=== PATIENT | female | born 1950 | race Caucasian/White ===

== ENCOUNTER → 2018-11-11 | Outpatient (CLI) | payer MEDICARE, OTHER | LOC: M.MRI 11-08 16:30 | DX: M47.816 Spondylosis without myelopathy or radiculopathy, lumbar region (principal); G89.29 Other chronic pain; M96.1 Postlaminectomy syndrome, not elsewhere classified; M48.061 Spinal stenosis, lumbar region without neurogenic claudication; Z88.8 Allergy status to other drugs, medicaments and biological substances ==

== ENCOUNTER → 2018-11-12 | Outpatient (CLI) | payer MEDICARE, OTHER | LOC: M.ULTRA 10-22 15:27 | DX: K76.0 Fatty (change of) liver, not elsewhere classified (principal); I10 Essential (primary) hypertension; F17.210 Nicotine dependence, cigarettes, uncomplicated; E66.01 Morbid (severe) obesity due to excess calories; Z88.8 Allergy status to other drugs, medicaments and biological substances; Z68.41 Body mass index [BMI] 40.0-44.9, adult; Z90.710 Acquired absence of both cervix and uterus; Z82.49 Family history of ischemic heart disease and other diseases of the circulatory system; Z83.3 Family history of diabetes mellitus ==

== ENCOUNTER → 2018-12-08 | Outpatient (CLI) | payer MEDICARE, OTHER ==
[~2018-12-08] MED LIST: CETIRIZINE HCL10 MG PO; FLEXERIL PO; LOPRESSOR50 PO; NORVASC5 MG PO; PYRIDOXINE HCL50 MG PO; SENNA8.6 MG PO; TRAZODONE 150150 M1 PO; VITAMIN D2000 UNIT PO
== END ==
LOC: M.PC 05:11
DX: M51.36 Other intervertebral disc degeneration, lumbar region (principal); M47.816 Spondylosis without myelopathy or radiculopathy, lumbar region; I10 Essential (primary) hypertension; E66.9 Obesity, unspecified; Z68.41 Body mass index [BMI] 40.0-44.9, adult

== ENCOUNTER → 2019-01-12 | Outpatient (CLI) | payer MEDICARE, OTHER ==
[~2019-01-12] MED LIST changes: +TRAMADOL 50 MG50 MG PO
== END | disposition home or self-care (01) ==
LOC: M.PC 03:37
DX: M47.816 Spondylosis without myelopathy or radiculopathy, lumbar region (principal); M51.36 Other intervertebral disc degeneration, lumbar region; M53.3 Sacrococcygeal disorders, not elsewhere classified; I10 Essential (primary) hypertension; E66.09 Other obesity due to excess calories; Z68.41 Body mass index [BMI] 40.0-44.9, adult; Z98.890 Other specified postprocedural states; Z88.8 Allergy status to other drugs, medicaments and biological substances; Z79.899 Other long term (current) drug therapy

== ENCOUNTER → 2019-01-24 | Outpatient (CLI) | payer MEDICARE, OTHER | END | disposition home or self-care (01) | LOC: M.PC 05:05 | DX: M51.36 Other intervertebral disc degeneration, lumbar region (principal); M47.816 Spondylosis without myelopathy or radiculopathy, lumbar region; M96.1 Postlaminectomy syndrome, not elsewhere classified; M53.3 Sacrococcygeal disorders, not elsewhere classified; I10 Essential (primary) hypertension; E66.09 Other obesity due to excess calories; Z68.41 Body mass index [BMI] 40.0-44.9, adult; Z98.890 Other specified postprocedural states; Z83.3 Family history of diabetes mellitus; Z79.899 Other long term (current) drug therapy; Z82.49 Family history of ischemic heart disease and other diseases of the circulatory system; Z88.8 Allergy status to other drugs, medicaments and biological substances ==

== ENCOUNTER → 2019-03-28 | Outpatient (CLI) | payer MEDICARE, OTHER | END | disposition home or self-care (01) | LOC: M.PC 04:55 | DX: M53.3 Sacrococcygeal disorders, not elsewhere classified (principal); M96.1 Postlaminectomy syndrome, not elsewhere classified; M51.36 Other intervertebral disc degeneration, lumbar region; M47.896 Other spondylosis, lumbar region; I10 Essential (primary) hypertension; E66.09 Other obesity due to excess calories; Z88.8 Allergy status to other drugs, medicaments and biological substances; Z98.890 Other specified postprocedural states; Z68.41 Body mass index [BMI] 40.0-44.9, adult; Z82.49 Family history of ischemic heart disease and other diseases of the circulatory system; Z83.3 Family history of diabetes mellitus; Z79.899 Other long term (current) drug therapy ==

== ENCOUNTER → 2019-04-01 | Outpatient (CLI) | payer MEDICARE, OTHER | LOC: M.ULTRA 10:30 | DX: M79.89 Other specified soft tissue disorders (principal) ==

== ENCOUNTER → 2019-04-27 | Outpatient (CLI) | payer MEDICARE, OTHER | LOC: M.LAB 04-13 13:30 → M.MRI 04-13 14:30 → M.LAB 04-18 13:30 | PROVIDERS: Physical Medicine & Rehabilitation | DX: M47.814 Spondylosis without myelopathy or radiculopathy, thoracic region (principal) ==

== ENCOUNTER → 2019-05-30 | Outpatient (CLI) | payer MEDICARE, OTHER | LOC: M.PC 04:43 | DX: M47.816 Spondylosis without myelopathy or radiculopathy, lumbar region (principal); M51.36 Other intervertebral disc degeneration, lumbar region; M12.88 Other specific arthropathies, not elsewhere classified, other specified site; Z79.899 Other long term (current) drug therapy ==

== ENCOUNTER → 2019-06-15 | Outpatient (CLI) | payer MEDICARE, OTHER | LOC: M.PC 05:17 | DX: M51.36 Other intervertebral disc degeneration, lumbar region (principal); M47.816 Spondylosis without myelopathy or radiculopathy, lumbar region; M12.88 Other specific arthropathies, not elsewhere classified, other specified site ==

== ENCOUNTER 2020-03-05 16:51 | Inpatient (IN) | payer MEDICARE, OTHER ==
[~2020-03-05] VITALS: Ht 162.6 cm; Wt 127.0 kg
[2020-03-05 17:03] VITALS: BP 205/114
[2020-03-05 17:35] LABS: ABSOLUTE BASOPHILS 0.1 thou/uL (0.0-0.2); ABSOLUTE EOSINOPHILS 0.2 thou/uL (0.0-0.7); ABSOLUTE LYMPHOCYTES 2.3 thou/uL (0.8-5.3); ABSOLUTE MONOCYTES 0.6 thou/uL (0.0-1.2); ABSOLUTE NEUTROPHILS 5.8 thou/uL (1.6-8.1); BASOPHILS 1.2 %; EOSINOPHILS 2.5 %; HEMATOCRIT 36.7 % (37.0-47.0); HEMOGLOBIN 12.4 gm/dL (12.0-15.0); LYMPHOCYTES 25.5 %; MCH 27.5 pg (26.0-34.0); MCHC 33.7 g/dL (28.0-37.0); MCV 81.8 fL (80.0-100.0); MONOCYTES 6.3 %; NUCLEATED RBCS 0 /100WBC; PLATELET COUNT* 371 thou/uL (150-400); POLYS 64.5 %; RBC 4.49 mil/uL (4.20-5.00); RDW-CV 16.9 % (10.5-14.5); WBC 8.9 thou/uL (4.0-11.0)
[2020-03-05 17:44] LABS: CALCIUM 8.8 mg/dL (8.5-10.1); CREATININE 1.1 mg/dL (0.6-1.3); POTASSIUM 4.6 mmol/L (3.5-5.1)
[2020-03-05 17:56] LABS: ALBUMIN 3.2 g/dL (3.4-5.0); MAGNESIUM 1.9 mg/dL (1.8-2.4); TOTAL BILIRUBIN 0.4 mg/dL (<0.1-1.0); TOTAL PROTEIN 7.9 g/dL (6.4-8.2)
[2020-03-05] MEDS ORDERED: DESYREL150 MG PO (21:16)
[2020-03-05] MEDS ORDERED: LYRICA25 MG PO (21:16)
[2020-03-05] MEDS ORDERED: IBUPROFEN100 MG PO (21:38)
[2020-03-05 22:23] VITALS: BP 133/97
[2020-03-06] VITALS: BP 134/70
[2020-03-06 04:00] VITALS: BP 113/74
[2020-03-06 07:50] VITALS: BP 144/74
[2020-03-06 09:21] LABS: CALCIUM 8.2 mg/dL (8.5-10.1); CREATININE 1.2 mg/dL (0.6-1.3)
[2020-03-06 09:22] LABS: POTASSIUM 3.5 mmol/L (3.5-5.1)
[2020-03-06 11:30] VITALS: BP 117/73
[2020-03-06 15:47] VITALS: BP 152/98
--- NOTE | 2020-03-06 16:14 | 2DMMODE ---
[place] [address] 2 D/M-MODE ECHOCARDIOGRAM Name: HARSHAD LOCKETT Room: [address] IN [place]#: [id number] Admission: 03/05/20 Attend Phys: Evin Fernandez, Discharge: Date of : 46 Date of Service: 03/06/20 1614 Report #: [id number] THIS REPORT FOR: cc: Ryan Pedersen,Ryan Roy,Landon Teran MD [facility] ~ APPROVED REPORT Study performed: 03/06/2020 09:32:03 EXAM: Comprehensive 2D, Doppler, and color-flow Echocardiogram Patient Location: In-Patient Room #: [facility] Status: routine BSA: 2.26 HR: 67 bpm BP: 144/74 mmHg Rhythm: NSR Other Information Study Quality: Good Indications Dyspnea 2D Dimensions IVSd: 11.74 (7-11mm) LVOT Diam: 22.82 (18-24mm) LVDd: 52.08 mm PWd: 8.54 (7-11mm) Ascending Ao: 41.98 (22-36mm) LVDs: 29.38 (25-40mm) Aortic Root: 37.77 mm Volumes Left Atrial Volume (Systole) LA ESV Index: 30.00 mL/m2 Aortic Valve AoV Peak Gabriele.: 2.01 m/s AO Peak Gr.: 16.17 mmHg LVOT Max P.78 mmHg AO Mean Gr.: 8.75 mmHg LVOT Mean P.97 mmHg LVOT Max V: 2.05 m/s AO V2 VTI: 38.66 cm LVOT Mean V: 1.29 m/s TERENCE (VTI): 4.45 cm2 LVOT V1 VTI: 42.09 [place] [address] 2 D/M-MODE ECHOCARDIOGRAM Name: HARSHAD LOCKETT Room: [address] IN [facility]#: [id number] Admission: 03/05/20 Attend Phys: Evin Fernandez, Discharge: Date of : 46 Date of Service: 03/06/20 1614 Report #: [id number] Mitral Valve E/A Ratio: 0.88 MV Decel. Time: 271.42 ms MV E Max Gabriele.: 0.78 m/s MV PHT: 78.71 ms MVA (PHT): 2.79 cm2 TDI E/Lateral E': 7.09 Lateral E' Gabriele.: 0.11 m/s Pulmonary Valve PV Peak Gabriele.: 1.09 m/s PV Peak Gr.: 4.79 mmHg Left Ventricle The left ventricle is normal size. There is normal LV segmental wall motion. There is normal left ventricular wall thickness Left ventricular systolic function is normal. The left ventricular ejection fraction is within the normal range. LVEF is 55-60%. Grade I - abnormal relaxation pattern. Right Ventricle The right ventricle is normal size. The right ventricular systolic function is normal. Atria The left atrium size is normal. The right atrium size is normal. Aortic Valve Mild aortic valve sclerosis. No aortic regurgitation is present. There is no aortic valvular stenosis. Mitral Valve The mitral valve is normal in structure. There is no mitral valve regurgitation noted. No evidence of mitral valve stenosis. Tricuspid Valve The tricuspid valve is normal in structure. Unable to assess PA pressure. Trace tricuspid regurgitation. Pulmonic Valve The pulmonary valve is normal in structure. There is no pulmonic valvular regurgitation[place] [address] 2 D/M-MODE ECHOCARDIOGRAM Name: HARSHAD LOCKETT Room: [address]#: [id number] Admission: 03/05/20 Attend Phys: Evin Fernandez, Discharge: Date of : 46 Date of Service: 03/06/20 1614 Report #: [id number] The aortic root is normal in size. IVC is normal in size and collapses >50% with inspiration. Pericardium There is no pericardial effusion. <Conclusion> The left ventricle is normal size. There is normal left ventricular wall thickness Left ventricular systolic function is normal. The left ventricular ejection fraction is within the normal range. LVEF is 55-60%. Grade I - abnormal relaxation pattern. The right ventricle is normal size. The left atrium size is normal. Mild aortic valve sclerosis. No aortic regurgitation is present. There is no aortic valvular stenosis. The mitral valve is normal in structure. The tricuspid valve is normal in structure. IVC is normal in size and collapses >50% with inspiration. There is no pericardial effusion. There is normal LV segmental wall motion. <ELECTRONICALLY SIGNED> By: Landon Lindsay MD, FACC 03/06/20 1614 1614 1614 Landon Lindsay MD, FACC /INF
--- NOTE | 2020-03-06 16:23 | EKG ---
[place] [address] ELECTROCARDIOGRAM REPORT Name: HARSHAD LOCKETT Room: [address] ADM IN M.R.#: [id number] Admission: 03/05/20 Attend Phys: Evin Fernandez, Discharge: Date of : 46 Date of Service: 03/05/20 1732 Report #: [id number] THIS REPORT FOR: //name// [facility] ED Test Date: 2020-03-05 Test Time: 17:32:58 Pat Name: HARSHAD LOCKETT Department: Room: [facility] Gender: F Converting Technician: CCD : 1950 Requested By: Moody Eng Order Number: [id number] MD: Landon Lindsay Measurements Intervals [place] Rate: 67 P: 146 [place]: 162 QRS: 19 QRSD: 84 T: 135 QT: 409 QTc: 432 Interpretive Statements Sinus or ectopic atrial rhythm Atrial premature complex Low voltage, extremity leads Abnormal T, consider ischemia, lateral leads No previous ECG available for comparison Electronically Signed On 03-06-2020 16:23:43 CDT by Landon Lindsay [email or web address] <ELECTRONICALLY SIGNED> By: Landon Lindsay MD, [facility] 03/06/20 1623 1732 1732 Landon Lindsay MD, [facility] /EPI
[2020-03-06 20:25] VITALS: BP 140/96
[2020-03-07 04:00] VITALS: BP 144/77
[2020-03-07 04:55] LABS: HEMATOCRIT 34.5 % (37.0-47.0); HEMOGLOBIN 11.3 gm/dL (12.0-15.0); MCH 26.9 pg (26.0-34.0); MCHC 32.8 g/dL (28.0-37.0); MCV 82.1 fL (80.0-100.0); MPV 6.7 fl. (7.2-11.1); RBC 4.2 mil/uL (4.20-5.00); RDW-CV 16.9 % (10.5-14.5); WBC 12.3 thou/uL (4.0-11.0)
[2020-03-07 05:21] LABS: CALCIUM 8.1 mg/dL (8.5-10.1); CREATININE 1.3 mg/dL (0.6-1.3); POTASSIUM 4.2 mmol/L (3.5-5.1)
[2020-03-07 08:00] VITALS: BP 137/83
[2020-03-07 12:19] VITALS: BP 122/56
[2020-03-07 21:20] VITALS: BP 173/102
[2020-03-08] VITALS: BP 161/88
[2020-03-08 04:00] VITALS: BP 173/98
[2020-03-08 08:15] VITALS: BP 148/95
[2020-03-08 12:00] VITALS: BP 125/70
[2020-03-08 16:53] VITALS: BP 160/103
[2020-03-08 19:30] VITALS: BP 185/101
[2020-03-09] VITALS: BP 159/87
[2020-03-09 04:00] VITALS: BP 178/101
[2020-03-09 08:00] VITALS: BP 161/90
[2020-03-09] MEDS ORDERED: AZITHROMYCIN500 MG PO (10:04)
[2020-03-09] MEDS ORDERED: COZAAR 50 MG TA50 M1 PO (10:04)
[2020-03-09] MEDS ORDERED: CEFDINIR300 MG PO (10:04)
[2020-03-09] MEDS ORDERED: LASIX 20 MG TAB20 MG PO (10:04)
[2020-03-09 11:45] VITALS: BP 136/75
== END 2020-03-09 15:00 | disposition home or self-care (01) | DRG 193 ==
LOC: M.ERS 16:51 → M.TBA-ER 18:41 → M.2W 18:41
PROVIDERS: Emergency Medicine Emergency Medical Services; Internal Medicine; ADMIT Internal Medicine; ATTEND Internal Medicine
DX: J15.9 Unspecified bacterial pneumonia (principal); J96.01 Acute respiratory failure with hypoxia; I16.1 Hypertensive emergency; Z68.42 Body mass index [BMI] 45.0-49.9, adult; Z20.828 Contact with and (suspected) exposure to other viral communicable diseases; I10 Essential (primary) hypertension; G47.00 Insomnia, unspecified; Z96.652 Presence of left artificial knee joint; E66.01 Morbid (severe) obesity due to excess calories; Z88.8 Allergy status to other drugs, medicaments and biological substances; Z79.899 Other long term (current) drug therapy

== ENCOUNTER → 2020-03-22 | Outpatient (CLI) | payer MEDICARE, OTHER ==
[~2020-03-22] MED LIST changes: +AZITHROMYCIN500 MG PO; +CEFDINIR300 MG PO; +COZAAR 50 MG TA50 M1 PO; +DESYREL150 MG PO; +IBUPROFEN100 MG PO; +LASIX 20 MG TAB20 MG PO; +LYRICA25 MG PO
[2020-03-22 16:04] LABS: CALCIUM 8.9 mg/dL (8.5-10.1); CREATININE 1.1 mg/dL (0.6-1.3); POTASSIUM 3.9 mmol/L (3.5-5.1)
== END ==
LOC: M.LAB 15:26
PROVIDERS: ATTEND Registered Nurse
DX: I50.32 Chronic diastolic (congestive) heart failure (principal)

== ENCOUNTER → 2020-05-10 | Outpatient (CLI) | payer MEDICARE, OTHER | LOC: M.RAD 11:55 | PROVIDERS: ATTEND Orthopaedic Surgery | DX: M19.012 Primary osteoarthritis, left shoulder (principal) ==

== ENCOUNTER → 2020-06-20 | Outpatient (CLI) | payer MEDICARE, OTHER | LOC: M.PC 08:32 | PROVIDERS: ATTEND Physical Medicine & Rehabilitation | DX: M47.816 Spondylosis without myelopathy or radiculopathy, lumbar region (principal); M51.36 Other intervertebral disc degeneration, lumbar region; G62.9 Polyneuropathy, unspecified; E66.9 Obesity, unspecified; I10 Essential (primary) hypertension; Z88.8 Allergy status to other drugs, medicaments and biological substances; Z79.899 Other long term (current) drug therapy ==

== ENCOUNTER → 2020-09-10 | Outpatient (CLI) | payer MEDICARE, OTHER | LOC: M.PC 09-05 09:50 | PROVIDERS: ATTEND Physical Medicine & Rehabilitation | DX: M51.36 Other intervertebral disc degeneration, lumbar region (principal); M47.816 Spondylosis without myelopathy or radiculopathy, lumbar region; M53.3 Sacrococcygeal disorders, not elsewhere classified; G62.9 Polyneuropathy, unspecified; M96.1 Postlaminectomy syndrome, not elsewhere classified ==

== ENCOUNTER 2020-09-14 14:40 | Inpatient (IN) | payer MEDICARE, OTHER ==
[~2020-09-14] VITALS: Ht 162.6 cm; Wt 133.2 kg
[2020-09-14 14:47] VITALS: BP 240/124
[2020-09-14 15:09] LABS: ABSOLUTE BASOPHILS 0.1 thou/uL (0.0-0.2); ABSOLUTE EOSINOPHILS 0.2 thou/uL (0.0-0.7); ABSOLUTE LYMPHOCYTES 3.2 thou/uL (0.8-5.3); ABSOLUTE MONOCYTES 0.5 thou/uL (0.0-1.2); ABSOLUTE NEUTROPHILS 6.3 thou/uL (1.6-8.1); EOSINOPHILS 1.7 %; HEMATOCRIT 39.6 % (37.0-47.0); HEMOGLOBIN 12.7 gm/dL (12.0-15.0); LYMPHOCYTES 30.7 %; MCH 25.9 pg (26.0-34.0); MCHC 32.2 g/dL (28.0-37.0); MCV 80.4 fL (80.0-100.0); MONOCYTES 5.3 %; MPV 6.8 fl. (7.2-11.1); NUCLEATED RBCS 0 /100WBC; PLATELET COUNT* 377 thou/uL (150-400); POLYS 61.3 %; RBC 4.92 mil/uL (4.20-5.00); RDW-CV 17.7 % (10.5-14.5); WBC 10.4 thou/uL (4.0-11.0)
[2020-09-14 15:20] LABS: APTT 24.2 Seconds (25.0-31.3); PROTIME 10.6 Seconds (9.20-11.50)
[2020-09-14 15:32] LABS: CALCIUM 9.1 mg/dL (8.5-10.1); CREATININE 1.2 mg/dL (0.6-1.3); POTASSIUM 4.2 mmol/L (3.5-5.1)
[2020-09-14 15:45] LABS: ALBUMIN 3.3 g/dL (3.4-5.0); CK-MB MASS 0.8 ng/mL (<0.5-3.6); MAGNESIUM 1.7 mg/dL (1.8-2.4); TOTAL BILIRUBIN 0.4 mg/dL (<0.1-1.0); TOTAL PROTEIN 8.2 g/dL (6.4-8.2)
--- NOTE | 2020-09-14 17:23 | 2DMMODE ---
[place] [address] 2 D/M-MODE ECHOCARDIOGRAM Name: HARSHAD LOCKETT Room: [place] [address] ADM IN [place]#: [id number] Admission: 09/14/20 Attend Phys: Nicci Oneil, Discharge: Date of : 46 Date of Service: 09/14/20 1723 Report #: [id number] THIS REPORT FOR: cc: Ryan Pedersen,Ryan Roy,Landon Teran MD [facility] ~ APPROVED REPORT Study performed: 09/14/2020 16:40:11 EXAM: Comprehensive 2D, Doppler, and color-flow Echocardiogram Patient Location: In-Patient Room #: ER Status: routine BSA: 2.27 HR: 74 bpm BP: 233/149 mmHg Rhythm: NSR Other Information Study Quality: Good Indications Hypertension/HDD 2D Dimensions IVSd: 10.44 (7-11mm) LVOT Diam: 19.07 (18-24mm) LVDd: 59.00 mm PWd: 11.14 (7-11mm) Ascending Ao: 33.37 (22-36mm) LVDs: 40.40 (25-40mm) Aortic Root: 34.66 mm Aortic Valve AoV Peak Gabriele.: 2.30 m/s AO Peak Gr.: 21.23 mmHg LVOT Max P.86 mmHg AO Mean Gr.: 10.51 mmHg LVOT Mean P.64 mmHg LVOT Max V: 1.65 m/s AO V2 VTI: 33.14 cm LVOT Mean V: 0.96 m/s TERENCE (VTI): 2.68 cm2 LVOT V1 VTI: 31.15 cm Mitral Valve E/A Ratio: 0.73 MV Decel. Time: 267.28 ms MV E Max Gabriele.: 0.62 m/[place] [address] 2 D/M-MODE ECHOCARDIOGRAM Name: HARSHAD LOCKETT Room: [address] IN [facility]#: [id number] Admission: 09/14/20 Attend Phys: Nicci Oneil, Discharge: Date of : 46 Date of Service: 09/14/20 1723 Report #: [id number] PHT: 77.51 ms MVA (PHT): 2.84 cm2 TDI E/Lateral E': 7.75 Lateral E' Gabriele.: 0.08 m/s Pulmonary Valve PV Peak Gabriele.: 1.42 m/s PV Peak Gr.: 8.08 mmHg Left Ventricle The left ventricle is normal size. There is normal LV segmental wall motion. There is normal left ventricular wall thickness. Left ventricular systolic function is normal. The left ventricular ejection fraction is within the normal range. LVEF is 60%. Grade I - abnormal relaxation pattern. Right Ventricle The right ventricle is normal size. The right ventricular systolic function is normal. Atria The left atrium size is normal. The right atrium size is normal. Aortic Valve Mild aortic valve sclerosis. Trace aortic regurgitation. No hemodynamically significant valvular aortic stenosis. Mitral Valve Mild mitral annular calcification. There is no mitral valve regurgitation noted. No evidence of mitral valve stenosis. Tricuspid Valve The tricuspid valve is normal in structure. Unable to assess PA pressure. Trace tricuspid regurgitation. Pulmonic Valve The pulmonary valve is normal in structure. There is no pulmonic valvular regurgitation. Great Vessels The aortic root is normal in size. IVC is not visualized[place] [address] 2 D/M-MODE ECHOCARDIOGRAM Name: HARSHAD LOCKETT Room: [address] IN [facility]#: [id number] Admission: 09/14/20 Attend Phys: Nicci Oneil, Discharge: Date of : 46 Date of Service: 09/14/20 1723 Report #: [id number] There is no pericardial effusion. <Conclusion> The left ventricle is normal size. There is normal left ventricular wall thickness. Left ventricular systolic function is normal. The left ventricular ejection fraction is within the normal range. LVEF is 60%. Grade I - abnormal relaxation pattern. The right ventricle is normal size. The left atrium size is normal. Mild aortic valve sclerosis. Trace aortic regurgitation. No hemodynamically significant valvular aortic stenosis. Mild mitral annular calcification. There is no mitral valve regurgitation noted. The tricuspid valve is normal in structure. There is no pericardial effusion. There is normal LV segmental wall motion. <ELECTRONICALLY SIGNED> By: Landon Lindsay MD, [facility] 09/14/201722 22 22 Landon Lindsay MD, FACC /INF
[2020-09-14 19:56] VITALS: BP 155/70
[2020-09-14 21:00] VITALS: BP 202/128
[2020-09-14 22:00] VITALS: BP 165/98
[2020-09-14 23:00] VITALS: BP 145/97
[2020-09-15] VITALS (7 sets, daily range): BP systolic 135–172; BP diastolic 83–112
[2020-09-15 04:54] LABS: HEMATOCRIT 38.4 % (37.0-47.0); HEMOGLOBIN 12.6 gm/dL (12.0-15.0); MCH 25.8 pg (26.0-34.0); MCHC 32.7 g/dL (28.0-37.0); MCV 78.9 fL (80.0-100.0); MPV 7.1 fl. (7.2-11.1); RBC 4.87 mil/uL (4.20-5.00); RDW-CV 18.1 % (10.5-14.5); WBC 10.5 thou/uL (4.0-11.0)
[2020-09-15 05:06] LABS: ALBUMIN 3.1 g/dL (3.4-5.0); CALCIUM 9.2 mg/dL (8.5-10.1); CREATININE 1.3 mg/dL (0.6-1.3); MAGNESIUM 1.8 mg/dL (1.8-2.4); POTASSIUM 3.3 mmol/L (3.5-5.1); TOTAL BILIRUBIN 0.5 mg/dL (<0.1-1.0); TOTAL PROTEIN 7.9 g/dL (6.4-8.2)
[2020-09-15] MEDS ORDERED: ELIQUIS5 M1 PO (13:18)
[2020-09-16] VITALS (7 sets, daily range): BP systolic 126–155; BP diastolic 69–97
[2020-09-16 05:08] LABS: HEMATOCRIT 36.6 % (37.0-47.0); HEMOGLOBIN 11.7 gm/dL (12.0-15.0); MCH 25.6 pg (26.0-34.0); MCHC 31.9 g/dL (28.0-37.0); MCV 80.1 fL (80.0-100.0); MPV 7.1 fl. (7.2-11.1); RBC 4.57 mil/uL (4.20-5.00); RDW-CV 18.1 % (10.5-14.5); WBC 14.4 thou/uL (4.0-11.0)
[2020-09-16 05:19] LABS: CALCIUM 8.9 mg/dL (8.5-10.1); CREATININE 1.2 mg/dL (0.6-1.3); MAGNESIUM 1.9 mg/dL (1.8-2.4); POTASSIUM 3.8 mmol/L (3.5-5.1); TOTAL BILIRUBIN 0.3 mg/dL (<0.1-1.0); TOTAL PROTEIN 7.2 g/dL (6.4-8.2)
[2020-09-16 05:36] LABS: GLYCOHEMOGLOBIN (HGB A1C) 6.4 % (4.8-5.6)
[2020-09-17 04:20] VITALS: BP 125/79
[2020-09-17 04:30] LABS: HEMATOCRIT 36.3 % (37.0-47.0); HEMOGLOBIN 11.6 gm/dL (12.0-15.0); MCH 25.8 pg (26.0-34.0); MCV 80.6 fL (80.0-100.0); RBC 4.5 mil/uL (4.20-5.00); RDW-CV 18.6 % (10.5-14.5); WBC 11.8 thou/uL (4.0-11.0)
[2020-09-17 04:50] LABS: CALCIUM 8.5 mg/dL (8.5-10.1); CREATININE 1.2 mg/dL (0.6-1.3); MAGNESIUM 1.9 mg/dL (1.8-2.4); POTASSIUM 3.9 mmol/L (3.5-5.1)
[2020-09-17 08:00] VITALS: BP 111/74
[2020-09-17] MEDS ORDERED: LEVOFLOXACIN500 MG PO (09:15)
[2020-09-17] MEDS ORDERED: PROCARDIA XL30 MG PO (09:15)
[2020-09-17] MEDS ORDERED: SORINE 80 MG TA80 M1 PO (09:15)
[2020-09-17] MEDS ORDERED: COZAAR 50 MG TA50 M1 PO (09:15)
[2020-09-17] MEDS ORDERED: LASIX 40 MG TAB40 M1 PO (09:15)
[2020-09-17] MEDS ORDERED: XARELTO20 MG PO (09:15)
[2020-09-17] MEDS ORDERED: GLUCOPHAGE500 MG PO (09:15)
[2020-09-17] MEDS ORDERED: KLOR-CON 10 ER10 MEQ PO (09:29)
--- NOTE | 2020-09-17 10:34 | EKG ---
[place] [address] ELECTROCARDIOGRAM REPORT Name: HARSHAD LOCKETT Room: [address] ADM IN M.R.#: [id number] Admission: 09/14/20 Attend Phys: Nicci Oneil, Discharge: Date of : 46 Date of Service: 09/14/20 1449 Report #: [id number] THIS REPORT FOR: //name// [facility] ED Test Date: 2020-09-14 Test Time: 14:49:07 Pat Name: HARSHAD LOCKETT Department: Room: [facility] Gender: F Range Technician: GRECIA : 1950 Requested By: Garry Dale Order Number: [id number] MD: Terell Oliva Measurements Intervals [place] Rate: 82 P: 50 NM: 155 QRS: 4 QRSD: 89 T: 46 QT: 375 QTc: 438 Interpretive Statements Sinus rhythm Low voltage, precordial leads Baseline wander in lead(s) V1 Compared to ECG 03/05/2020 17:32:58 Ectopic atrial rhythm no longer present Atrial premature complex(es) no longer present T-wave abnormality no longer present Possible ischemia no longer present Electronically Signed On 09-17-2020 10:34:44 CDT by Terell Oliva [email or web address] <ELECTRONICALLY SIGNED> By: Terell Oliva MD, [facility] 09/17/20 1034 1449 1449 Terell Oliva MD, [facility] /EPI
--- NOTE | 2020-09-17 10:37 | EKG ---
[place] [address] ELECTROCARDIOGRAM REPORT Name: HARSHAD LOCKETT Room: [address] ADM IN M.R.#: [id number] Admission: 09/14/20 Attend Phys: Nicci Oneil, Discharge: Date of : 46 Date of Service: 09/14/20 2350 Report #: [id number] THIS REPORT FOR: //name// [facility] Test Date: 2020-09-14 Test Time: 23:50:50 Pat Name: HARSHAD LOCKETT Department: Room: [address] Gender: F Underground Roof Bolter: UNKNOWN : 1950 Requested By: Diane Dallas Order Number: [id number] Reading MD: Terell Oliva Measurements Intervals [place] Rate: 136 P: [place]: QRS: 4 QRSD: 99 T: -5 QT: 347 QTc: 523 Interpretive Statements Atrial fibrillation Nonspecific repol abnormality, diffuse leads Prolonged QT interval Compared to ECG 09/14/2020 14:49:07 Early repolarization now present Prolonged QT interval now present Sinus rhythm no longer present Electronically Signed On 09-17-2020 10:37:47 CDT by Terell Oliva [email or web address] <ELECTRONICALLY SIGNED> By: Terell Oliva MD, FACC 09/17/20 1037 2350 2350 Terell Oliva MD, FACC /EPI
--- NOTE | 2020-09-17 11:10 | EKG ---
[place] [address] ELECTROCARDIOGRAM REPORT Name: HARSHAD LOCKETT Room: [address] ADM IN M.R.#: [id number] Admission: 09/14/20 Attend Phys: Nicci Oneil, Discharge: Date of : 46 Date of Service: 09/16/20 1045 Report #: [id number] THIS REPORT FOR: //name// [facility] Test Date: 2020-09-16 Test Time: 10:45:31 Pat Name: HARSHAD LOCKETT Department: Room: [address] Gender: F Client Experience Specialist: MERCEDES : 1950 Requested By: Diane Dallas Order Number: [id number] Reading MD: Terell Oliva Measurements Intervals [place] Rate: 65 P: 67 [place]: 146 QRS: 28 QRSD: 89 T: 34 QT: 433 QTc: 451 Interpretive Statements Sinus rhythm Borderline T abnormalities, anterior leads Compared to ECG 09/14/2020 23:50:50 T-wave abnormality now present Atrial fibrillation no longer present Early repolarization no longer present Prolonged QT interval no longer present Electronically Signed On 09-17-2020 11:09:51 CDT by Terell Oliva [email or web address] <ELECTRONICALLY SIGNED> By: Terell Oliva MD, FACC 09/17/20 1109 1045 1045 Terell Oliva MD, FAC /EPI
--- NOTE | 2020-09-17 13:14 | EKG ---
[place] [address] ELECTROCARDIOGRAM REPORT Name: HARSHAD LOCKETT Room: [address] ADM IN M.R.#: [id number] Admission: 09/14/20 Attend Phys: Nicci Oneil, Discharge: Date of : 46 Date of Service: 09/17/2031 Report #: [id number] THIS REPORT FOR: //name// [facility] Test Date: 2020-09-17 Test Time: 08:31:43 Pat Name: HARSHAD LOCKETT Department: Room: [address] Gender: F Restaurant Attendant: FRANCIA : 1950 Requested By: Diane Dallas Order Number: [id number] Reading MD: Terell Oliva Measurements Intervals [place] Rate: 73 P: 65 [place]: 144 QRS: 31 QRSD: 86 T: 38 QT: 440 QTc: 485 Interpretive Statements Sinus rhythm Consider left atrial enlargement Electronically Signed On 09-17-2020 13:14:12 CDT by Terell Oliva [email or web address] <ELECTRONICALLY SIGNED> By: Terell Oliva MD, [facility] 09/17/20 1314 0 0 Terell Oliva MD, [facility] /EPI
[2020-09-17 13:55] VITALS: BP 111/74
== END 2020-09-17 15:30 | disposition home health service (06) | DRG 177 ==
LOC: M.ERS 14:40 → M.TBA-ER 16:10 → M.2W 16:10
PROVIDERS: Family Medicine; ADMIT Internal Medicine; ATTEND Internal Medicine
DX: J15.6 Pneumonia due to other Gram-negative bacteria (principal); J96.01 Acute respiratory failure with hypoxia; I50.33 Acute on chronic diastolic (congestive) heart failure; I16.1 Hypertensive emergency; L03.116 Cellulitis of left lower limb; L03.115 Cellulitis of right lower limb; I48.20 Chronic atrial fibrillation, unspecified; M79.7 Fibromyalgia; G47.00 Insomnia, unspecified; E66.01 Morbid (severe) obesity due to excess calories; R73.9 Hyperglycemia, unspecified; F17.210 Nicotine dependence, cigarettes, uncomplicated; I48.0 Paroxysmal atrial fibrillation; G47.33 Obstructive sleep apnea (adult) (pediatric); I11.0 Hypertensive heart disease with heart failure; Z96.652 Presence of left artificial knee joint; Z20.822 Contact with and (suspected) exposure to COVID-19; Z79.899 Other long term (current) drug therapy; Z88.8 Allergy status to other drugs, medicaments and biological substances

== ENCOUNTER 2021-04-18 16:37 | Inpatient (IN) | payer MEDICARE, OTHER ==
[~2021-04-18] VITALS: Ht 162.6 cm; Wt 137.2 kg
[~2021-04-18 16:37] MED LIST changes: +ELIQUIS5 M1 PO; +GLUCOPHAGE500 MG PO; +KLOR-CON 10 ER10 MEQ PO; +LASIX 40 MG TAB40 M1 PO; +LEVOFLOXACIN500 MG PO; +PROCARDIA XL30 MG PO; +SORINE 80 MG TA80 M1 PO; +XARELTO20 MG PO
[2021-04-18 16:43] VITALS: BP 144/91
[2021-04-18 17:48] LABS: ABSOLUTE BASOPHILS 0.1 thou/uL (0.0-0.2); ABSOLUTE EOSINOPHILS 0.1 thou/uL (0.0-0.7); ABSOLUTE LYMPHOCYTES 2.6 thou/uL (0.8-5.3); ABSOLUTE MONOCYTES 0.5 thou/uL (0.0-1.2); ABSOLUTE NEUTROPHILS 7.5 thou/uL (1.6-8.1); EOSINOPHILS 1.3 %; HEMATOCRIT 35.5 % (37.0-47.0); HEMOGLOBIN 11.2 gm/dL (12.0-15.0); LYMPHOCYTES 23.8 %; MCH 24.6 pg (26.0-34.0); MCHC 31.6 g/dL (28.0-37.0); MCV 77.8 fL (80.0-100.0); MONOCYTES 4.6 %; MPV 7.1 fl. (7.2-11.1); NUCLEATED RBCS 0 /100WBC; PLATELET COUNT* 379 thou/uL (150-400); POLYS 69.3 %; RBC 4.57 mil/uL (4.20-5.00); RDW-CV 17.5 % (10.5-14.5); WBC 10.9 thou/uL (4.0-11.0)
[2021-04-18 17:53] LABS: ANION GAP 10 mmol/L (7-16); BUN 23 mg/dL (7-18); CALCIUM 9.1 mg/dL (8.5-10.1); CHLORIDE 99 mmol/L (98-107); CO2 29 mmol/L (21-32); CREATININE 1.3 mg/dL (0.6-1.3); GLUCOSE 112 mg/dL (70-99); POTASSIUM 4.2 mmol/L (3.5-5.1); SODIUM 138 mmol/L (136-145)
[2021-04-18 18:05] LABS: ALBUMIN 3.1 g/dL (3.4-5.0); ALKALINE PHOSPHATASE 105 U/L (46-116); LIPASE 158 U/L (73-393); MAGNESIUM 1.7 mg/dL (1.8-2.4); NT-PRO BRAIN NAT PEPTIDE 177 pg/mL (<300); SGOT 11 U/L (15-37); SGPT 17 U/L (30-65); TOTAL BILIRUBIN 0.4 mg/dL (<0.1-1.0); TOTAL PROTEIN 8.1 g/dL (6.4-8.2)
[2021-04-18 21:15] VITALS: BP 144/92
[2021-04-18 21:22] VITALS: BP 156/87
[2021-04-18 21:30] VITALS: BP 144/92
[2021-04-19 00:49] VITALS: BP 106/61
[2021-04-19 04:06] VITALS: BP 100/63
[2021-04-19 07:40] VITALS: BP 100/61
[2021-04-19 07:59] LABS: CK-MB MASS < 0.5 ng/mL (<0.5-3.6)
--- NOTE | 2021-04-19 09:53 | EKG ---
[place] [address] ELECTROCARDIOGRAM REPORT Name: HARSHAD LOCKETT Room: [address] M.R.#: [id number] Admission: 04/18/21 Attend Phys: [place] Discharge: Date of : 46 Date of Service: 04/18/21 1644 Report #: [id number] THIS REPORT FOR: //name// [facility] ED Test Date: 2021-04-18 Test Time: 16:44:40 Pat Name: HARSHAD LOCKETT Department: Room: [address] Gender: F Mysql Database Developer: JENNIFFER : 1950 Requested By: Charlie Keller Order Number: [id number] MD: Terell Oliva Measurements Intervals [place] Rate: 80 P: 45 [place]: 169 QRS: 50 QRSD: 95 T: 44 QT: 389 QTc: 449 Interpretive Statements Sinus rhythm Compared to ECG 09/17/2020 08:31:43 No significant changes Electronically Signed On 04-19-2021 9:53:14 CDT by Terlel Oliva [email or web address] <ELECTRONICALLY SIGNED> By: Terell Oliva MD, [facility] 04/19/21 0953 1644 1644 Terell Oliva MD, [facility] /EPI
--- NOTE | 2021-04-19 10:01 | EKG ---
[place] [address] ELECTROCARDIOGRAM REPORT Name: HARSHAD LOCKETT Room: [address] M.R.#: [id number] Admission: 04/18/21 Attend Phys: [place] Discharge: Date of : 46 Date of Service: 04/19/21 0414 Report #: [id number] THIS REPORT FOR: //name// [facility] Test Date: 2021-04-19 Test Time: 04:14:21 Pat Name: HARSHAD LOCKETT Department: Room: [address] Gender: F Fuse Maker: EDNAE : 1950 Requested By: Martín Mart Order Number: [id number] Deejay MD: Terell Oliva Measurements Intervals [place] Rate: 66 P: 55 [place]: 161 QRS: 28 QRSD: 90 T: 40 QT: 434 QTc: 455 Interpretive Statements Sinus rhythm Compared to ECG 04/18/2021 17:39:56 No significant changes Electronically Signed On 04-19-2021 10:01:42 CDT by Terell Oliva [email or web address] <ELECTRONICALLY SIGNED> By: Terell Oliva MD, FACC 04/19/21 1001 0414 0414 Terell Oliva MD, [facility] /EPI
--- NOTE | 2021-04-19 10:29 | NUR ---
Nutrition: Pt admitted to COVID unit. Spoke with nursing. Pt is eating well on heart healthy diet. Admitted with CHF. BG 112-136, albumin 3.1. H/o fibromyalgia, HTN, OBE, COPD. Wt: 302#. Assessed for high BMI. Consider low to mild risk.
[2021-04-19 12:15] VITALS: BP 127/74
--- NOTE | 2021-04-19 12:17 | 2DMMODE ---
[place] [address] 2 D/M-MODE ECHOCARDIOGRAM Name: HARSHAD LOCKETT Room: [address] IN [facility]#: [id number] Admission: 04/18/21 Attend Phys: [place] Discharge: Date of : 46 Date of Service: 04/19/21 1216 Report #: [id number] THIS REPORT FOR: cc: Ryan Pedersen,Ryan Soares,Terell Lopez MD [facility] ~ APPROVED REPORT Study performed: 04/19/2021 10:55:30 EXAM: Comprehensive 2D, Doppler, and color-flow Echocardiogram Patient Location: In-Patient Room #: 117 Status: routine BSA: 2.33 HR: 67 bpm BP: 100/61 mmHg Rhythm: NSR Other Information Study Quality: Adequate Indications Congestive Heart Failure 2D Dimensions IVSd: 13.16 (7-11mm) LVOT Diam: 19.68 (18-24mm) LVDd: 47.59 mm PWd: 14.40 (7-11mm) Ascending Ao: 38.88 (22-36mm) LVDs: 24.50 (25-40mm) Aortic Root: 38.38 mm Aortic Valve AoV Peak Gabriele.: 1.80 m/s AO Peak Gr.: 13.00 mmHg LVOT Max P.37 mmHg AO Mean Gr.: 6.04 mmHg LVOT Mean P.86 mmHg LVOT Max V: 1.83 m/s AO V2 VTI: 32.91 cm LVOT Mean V: 1.09 m/s TERENCE (VTI): 3.04 cm2 LVOT V1 VTI: 32.92 cm Mitral Valve E/A Ratio: 1.13 MV Decel. Time: 186.47 ms MV E Max Gabriele.: 0.83 m/[place] [address] 2 D/M-MODE ECHOCARDIOGRAM Name: HARSHAD LOCKETT Room: [address] IN [facility]#: [id number] Admission: 04/18/21 Attend Phys: [place] Discharge: Date of : 46 Date of Service: 04/19/21 1216 Report #: [id number] MV PHT: 54.08 ms MVA (PHT): 4.07 cm2 TDI E/Lateral E': 7.55 E/Medial E': 5.93 Medial E' Gabriele.: 0.14 m/s Lateral E' Gabriele.: 0.11 m/s Pulmonary Valve PV Peak Gabriele.: 1.16 m/s PV Peak Gr.: 5.39 mmHg Tricuspid Valve RAP Estimate: 5.00 mmHg TR Peak Gr.: 26.10 mmHg RVSP: 31.00 mmHg PA Pressure: 31.00 mmHg Left Ventricle The left ventricle is normal size. There is normal LV segmental wall motion. Mild concentric left ventricular hypertrophy. Left ventricular systolic function is normal. The left ventricular ejection fraction is within the normal range. LVEF is 55-60%. This study is not technically sufficient to allow evaluation of the LV diastolic function. Right Ventricle The right ventricle is normal size. The right ventricular systolic function is normal. Atria The left atrium size is normal. The right atrium size is normal. Aortic Valve The aortic valve is normal in structure. No aortic regurgitation is present. There is no aortic valvular stenosis. Mitral Valve The mitral valve is normal in structure. There is no mitral valve regurgitation noted. No evidence of mitral valve stenosis. Tricuspid Valve The tricuspid valve is normal in structure. Trace tricuspid regurgitation. estimated pa pressure 35 mm hg Pulmonic Valve The pulmonary valve is normal in structure. [place] [address] 2 D/M-MODE ECHOCARDIOGRAM Name: HARSHAD LOCKETT Room: [address] IN [facility].#: [id number] Admission: 04/18/21 Attend Phys: [place] Discharge: Date of : 46 Date of Service: 04/19/21 1216 Report #: [id number] valvular regurgitation. Great Vessels Aortic root is mildly dilated. IVC is normal in size and collapses >50% with inspiration. Pericardium There is no pericardial effusion. <Conclusion> Normal echocardiogram. LVEF is 55-60%. Mild concentric left ventricular hypertrophy. Trace tricuspid regurgitation. estimated pa pressure 35 mm hg <ELECTRONICALLY SIGNED> By: Terell Oliva MD, FACC 04/19/211215 15 15 Terell Oliva MD, FACC /INF
--- NOTE | 2021-04-19 13:35 | NUR ---
ASSUMED CARE OF PT AT 0730. PT A&0X4, DENIES ANY PAIN OR SHORTNESS OF BREATH AT THIS TIME. TRACING SR ON THE STERILE PROC TECH. ON 3L NC SAT MID 90'S. CARDIO CONSULT IN PLACE. PT UP WITH 1 ASSIST WALKER TO [facility]. WEAKNESS NOTED. PT GOAL FOR TODAY IS DIURESIS. IV LASIX GIVEN PER EMAR. AM ASSESSMENT CHARTED. MEDICATIONS PER MAR. PT REPOSITIONS SELF. HOURLY ROUNDING OBSERVED. BED IN LOW POSITION. CALL LIGHT WITHIN REACH. WILL CONTINUE PLAN OF CARE.
--- NOTE | 2021-04-19 15:43 | NUR ---
Case and plan of care reviewed with physician each weekday during patient's length of stay. Plan is for .. 3L of oxygen AT BASELINE, CHESTPAIN EDEMA OF LOWER LEGS
[2021-04-19 15:59] VITALS: BP 101/57
--- NOTE | 2021-04-19 17:00 | EKG ---
[place] [address] ELECTROCARDIOGRAM REPORT Name: HARSHAD LOCKETT Room: [address] ADM IN M.R.#: [id number] Admission: 04/18/21 Attend Phys: [place] Discharge: Date of : 46 Date of Service: 04/18/21 1739 Report #: [id number] THIS REPORT FOR: //name// [facility] ED Test Date: 2021-04-18 Test Time: 17:39:56 Pat Name: HARSHAD LOCKETT Department: Room: [address] Gender: F Dean Of Education: : 1950 Requested By: [place] Order Number: [id number] MD: Terell Oliva Measurements Intervals [place] Rate: 74 P: 70 [place]: 169 QRS: 25 QRSD: 100 T: 39 QT: 400 QTc: 444 Interpretive Statements Sinus rhythm Compared to ECG 04/18/2021 16:44:40 No significant changes Electronically Signed On 04-19-2021 17:00:37 CDT by Terell Oliva [email or web address] <ELECTRONICALLY SIGNED> By: Terell Oliva MD, FACC 04/19/21 1700 1739 1739 Terell Oliva MD, FAC /EPI
[2021-04-19 20:00] VITALS: BP 110/69
[2021-04-20 00:44] VITALS: BP 87/53; BP 91/52
[2021-04-20 04:27] VITALS: BP 102/60
[2021-04-20 04:27] LABS: HEMATOCRIT 34.4 % (37.0-47.0); HEMOGLOBIN 10.9 gm/dL (12.0-15.0); MCH 24.7 pg (26.0-34.0); MCHC 31.7 g/dL (28.0-37.0); MCV 77.7 fL (80.0-100.0); MPV 7.1 fl. (7.2-11.1); RBC 4.43 mil/uL (4.20-5.00); RDW-CV 18.1 % (10.5-14.5); WBC 10.1 thou/uL (4.0-11.0)
[2021-04-20 05:30] LABS: ALBUMIN 2.9 g/dL (3.4-5.0); CALCIUM 8.4 mg/dL (8.5-10.1); CREATININE 1.7 mg/dL (0.6-1.3); POTASSIUM 3.7 mmol/L (3.5-5.1); TOTAL BILIRUBIN 0.3 mg/dL (<0.1-1.0); TOTAL PROTEIN 7.8 g/dL (6.4-8.2)
[2021-04-20 08:00] VITALS: BP 113/68
[2021-04-20 08:21] LABS: MAGNESIUM 1.9 mg/dL (1.8-2.4)
[2021-04-20 15:40] VITALS: BP 103/59
[2021-04-20 20:00] VITALS: BP 104/65
[2021-04-21] VITALS: BP 84/53
[2021-04-21 04:00] VITALS: BP 114/61
[2021-04-21 06:23] LABS: HEMOGLOBIN 10.6 gm/dL (12.0-15.0); MCH 24.5 pg (26.0-34.0); MCHC 31.3 g/dL (28.0-37.0); MCV 78.4 fL (80.0-100.0); MPV 6.9 fl. (7.2-11.1); RBC 4.34 mil/uL (4.20-5.00); WBC 9.5 thou/uL (4.0-11.0)
[2021-04-21 06:36] LABS: ALBUMIN 2.7 g/dL (3.4-5.0); CALCIUM 8.5 mg/dL (8.5-10.1); CREATININE 1.2 mg/dL (0.6-1.3); MAGNESIUM 2.1 mg/dL (1.8-2.4); POTASSIUM 4.3 mmol/L (3.5-5.1); TOTAL BILIRUBIN 0.3 mg/dL (<0.1-1.0); TOTAL PROTEIN 7.6 g/dL (6.4-8.2)
[2021-04-21 12:05] VITALS: BP 110/65
[2021-04-21 16:54] VITALS: BP 101/55
[2021-04-21 20:00] VITALS: BP 139/76
[2021-04-22] VITALS: BP 113/63
--- NOTE | 2021-04-22 02:48 | NUR ---
PT ALERT ORIENTED. UP TO [facility] WITH ASSIST OF ONE AND WALKER. PT IS FUSSY AT TIMES. TOOL PLANNER TRACING SR.
[2021-04-22 04:00] VITALS: BP 155/85
[2021-04-22 04:12] LABS: HEMATOCRIT 32.3 % (37.0-47.0); HEMOGLOBIN 10.3 gm/dL (12.0-15.0); MCH 24.8 pg (26.0-34.0); MCHC 31.9 g/dL (28.0-37.0); MCV 77.8 fL (80.0-100.0); MPV 6.9 fl. (7.2-11.1); RBC 4.15 mil/uL (4.20-5.00); RDW-CV 17.6 % (10.5-14.5)
[2021-04-22 04:46] LABS: ALBUMIN 2.7 g/dL (3.4-5.0); CALCIUM 8.6 mg/dL (8.5-10.1); CREATININE 1.2 mg/dL (0.6-1.3); MAGNESIUM 1.9 mg/dL (1.8-2.4); POTASSIUM 4.1 mmol/L (3.5-5.1); TOTAL BILIRUBIN 0.3 mg/dL (<0.1-1.0); TOTAL PROTEIN 7.4 g/dL (6.4-8.2)
[2021-04-22] MEDS ORDERED: CEFDINIR300 MG PO (09:42)
[2021-04-22 10:21] VITALS: BP 120/71
--- NOTE | 2021-04-22 15:45 | NUR ---
CM DISCUSSED MD'S RECOMMEDATION FOR HH WITH PT. PT STATED " I CAN REFUSE. I HAVE MY DTR AT HOME. I DONT NEED IT. SW EDUCATED PT ON PT / OT BENEFITS FROM HH WE[facility] PENITENTI[facility]. PT DECLINED HH.
[2021-04-22 16:38] VITALS: BP 120/71
[2021-04-22 16:59] VITALS: BP 120/71
== END 2021-04-22 17:35 | disposition home or self-care (01) | DRG 177 ==
LOC: M.ERS 16:37 → M.ORTHSURG 18:13 → M.TBA-ER 18:13 → M.ORTHSURG 21:10
PROVIDERS: Emergency Medicine; Internal Medicine; ADMIT Internal Medicine; ATTEND Internal Medicine
DX: J15.6 Pneumonia due to other Gram-negative bacteria (principal); I50.33 Acute on chronic diastolic (congestive) heart failure; N17.9 Acute kidney failure, unspecified; Z68.43 Body mass index [BMI] 50.0-59.9, adult; L03.90 Cellulitis, unspecified; I11.0 Hypertensive heart disease with heart failure; E66.01 Morbid (severe) obesity due to excess calories; M79.7 Fibromyalgia; I87.8 Other specified disorders of veins; Z88.8 Allergy status to other drugs, medicaments and biological substances; I48.0 Paroxysmal atrial fibrillation; Z79.01 Long term (current) use of anticoagulants; J44.9 Chronic obstructive pulmonary disease, unspecified; Z20.822 Contact with and (suspected) exposure to COVID-19; G47.33 Obstructive sleep apnea (adult) (pediatric); G47.00 Insomnia, unspecified

== ENCOUNTER 2021-07-23 15:42 | Inpatient (IN) | payer MEDICARE, OTHER ==
[~2021-07-23] VITALS: Ht 162.6 cm; Wt 99.8 kg
[2021-07-23 15:44] VITALS: BP 167/126
[2021-07-23 16:27] LABS: ABSOLUTE BASOPHILS 0.1 thou/uL (0.0-0.2); ABSOLUTE EOSINOPHILS 0.2 thou/uL (0.0-0.7); ABSOLUTE LYMPHOCYTES 2.8 thou/uL (0.8-5.3); ABSOLUTE MONOCYTES 0.7 thou/uL (0.0-1.2); ABSOLUTE NEUTROPHILS 7.5 thou/uL (1.6-8.1); BASOPHILS 1.2 %; EOSINOPHILS 1.8 %; HEMATOCRIT 37.5 % (37.0-47.0); HEMOGLOBIN 11.9 gm/dL (12.0-15.0); LYMPHOCYTES 24.9 %; MCHC 31.8 g/dL (28.0-37.0); MCV 75.3 fL (80.0-100.0); MONOCYTES 6.1 %; MPV 6.8 fl. (7.2-11.1); NUCLEATED RBCS 0 /100WBC; PLATELET COUNT* 410 thou/uL (150-400); RBC 4.98 mil/uL (4.20-5.00); RDW-CV 20.1 % (10.5-14.5); WBC 11.3 thou/uL (4.0-11.0)
[2021-07-23 16:32] LABS: URINE BILIRUBIN NEGATIVE (Negative); URINE BLOOD TRACE (Negative); URINE CLARITY CLEAR; URINE COLOR YELLOW; URINE GLUCOSE-RANDOM NEGATIVE (Negative); URINE KETONES NEGATIVE (Negative); URINE LEUKOCYTES NEGATIVE (Negative); URINE NITRITE NEGATIVE (Negative); URINE PROTEIN NEGATIVE (Negative); URINE UROBILINOGEN 0.2 E.U./dl (0.2-1.0)
[2021-07-23 16:37] LABS: CALCIUM 8.3 mg/dL (8.5-10.1); CREATININE 1.1 mg/dL (0.6-1.3); POTASSIUM 3.4 mmol/L (3.5-5.1)
[2021-07-23 16:38] LABS: URINE RBC 0-2 Rare /HPF (0-2)
[2021-07-23 16:48] LABS: ALBUMIN 3.1 g/dL (3.4-5.0); TOTAL BILIRUBIN 0.3 mg/dL (<0.1-1.0); TOTAL PROTEIN 7.8 g/dL (6.4-8.2)
[2021-07-23 16:54] LABS: ANISOCYTOSIS 2+; HYPOCHROMASIA 1+
[2021-07-24 00:30] VITALS: BP 174/75
[2021-07-24 05:00] VITALS: BP 161/94
[2021-07-24 05:22] LABS: CALCIUM 8.6 mg/dL (8.5-10.1); PHOSPHORUS* 3.8 mg/dL (2.5-4.9); POTASSIUM 3.5 mmol/L (3.5-5.1)
[2021-07-24 09:15] VITALS: BP 164/113
--- NOTE | 2021-07-24 09:16 | EKG ---
[place] [address] ELECTROCARDIOGRAM REPORT Name: HARSHAD LOCKETT Room: [place] [address] ADM IN [facility]#: [id number] Admission: 07/23/21 Attend Phys: [place] Discharge: Date of : 46 Date of Service: 07/23/21 1620 Report #: [id number] THIS REPORT FOR: //name// [facility] ED Test Date: 2021-07-23 Test Time: 16:20:51 Pat Name: HARSHAD LOCKETT Department: Room: [facility] Gender: F Engagement Quality Consultant: HARSHAL : 1950 Requested By: Krista Kimbrough Order Number: [id number] MD: Terell Oliva Measurements Intervals [place] Rate: 68 P: 62 [place]: 174 QRS: 23 QRSD: 95 T: 32 QT: 457 QTc: 487 Interpretive Statements Sinus rhythm Borderline prolonged QT interval Compared to ECG 04/19/2021 04:14:21 No significant changes Electronically Signed On 07-24-2021 9:16:13 DRYCLEANER by Terell Oliva [email or web address] <ELECTRONICALLY SIGNED> By: Terell Oliva MD, FAC 07/24/21 0916 1620 1620 Terell Oliva MD, [facility] /EPI
[2021-07-24 13:15] VITALS: BP 155/96
--- NOTE | 2021-07-24 13:15 | 2DMMODE ---
[place] [address] 2 D/M-MODE ECHOCARDIOGRAM Name: HARSHAD LOCKETT Room: [place] [address] ADM [place]#: [id number] Admission: 07/23/21 Attend Phys: George Lee Discharge: Date of : 46 Date of Service: 07/24/21 1315 Report #: [id number] THIS REPORT FOR: cc: Ryan Pedersen,Ryan Soares,Terell Lopez MD [facility] ~ ADDENDUM APPROVED REPORT Study performed: 07/24/2021 10:24:41 EXAM: Comprehensive 2D, Doppler, and color-flow Echocardiogram Patient Location: In-Patient Room #: er Status: routine BSA: 2.04 HR: 77 bpm BP: 173/110 mmHg Rhythm: NSR Other Information Study Quality: Good Indications Dyspnea 2D Dimensions LVOT Diam: 20.29 (18-24mm) Ascending Ao: 42.07 (22-36mm) Aortic Root: 41.89 mm Volumes Left Atrial Volume (Systole) LA ESV Index: 33.70 mL/m2 Aortic Valve AoV Peak Gabriele.: 2.18 m/s AO Peak Gr.: 18.93 mmHg LVOT Max P.23 mmHg AO Mean Gr.: 10.91 mmHg LVOT Mean P.31 mmHg LVOT Max V: 2.30 m/s AO V2 VTI: 38.44 cm LVOT Mean V: 1.46 m/s TERENCE (VTI): 3.65 cm2 LVOT V1 VTI: 43.40 cm Pulmonary Valve PV Peak Gabriele.: 1.25 m/s PV Peak Gr.: 6.22 [place] [address] 2 D/M-MODE ECHOCARDIOGRAM Name: HARSHAD LOCKETT Room: [address] [place] [facility].#: [id number] Admission: 07/23/21 Attend Phys: George Lee Discharge: Date of : 46 Date of Service: 07/24/21 1315 Report #: [id number] Left Ventricle The left ventricle is normal size. There is normal LV segmental wall motion. There is normal left ventricular wall thickness. Left ventricular systolic function is normal. The left ventricular ejection fraction is within the normal range. LVEF is 60-65%. This study is not technically sufficient to allow evaluation of the LV diastolic function. Right Ventricle The right ventricle is normal size. The right ventricular systolic function is normal. Atria Left atrium is mildly dilated. The right atrium size is normal. Aortic Valve The aortic valve is normal in structure. mild aortic regurgitation is present. There is no aortic valvular stenosis. Mitral Valve The mitral valve is normal in structure. There is no mitral valve regurgitation noted. No evidence of mitral valve stenosis. Tricuspid Valve The tricuspid valve is normal in structure. Trace tricuspid regurgitation. Unable to assess PA pressure. Pulmonic Valve Pulmonic valve is not well visualized. There is no pulmonic valvular regurgitation. Great Vessels The aortic root is normal in size. The ascending aorta is mildly dilated. IVC is not well visualized. Pericardium There is no pericardial effusion. <Conclusion> LVEF is 60-65%. mild aortic [place] [address] 2 D/M-MODE ECHOCARDIOGRAM Name: HARSHAD LOCKETT Room: [address] [place] [facility]#: [id number] Admission: 07/23/21 Attend Phys: George Lee Discharge: Date of : 46 Date of Service: 07/24/211314 Report #: [id number] The ascending aorta is mildly dilated. Left atrium is mildly dilated. <ELECTRONICALLY SIGNED> By: Terell Oliva MD, FACC 07/24/211314 14 14 Terell Oliva MD, FACC /INF
[2021-07-24 15:12] LABS: HEMATOCRIT 37.3 % (37.0-47.0); HEMOGLOBIN 11.8 gm/dL (12.0-15.0); MCH 23.9 pg (26.0-34.0); MCHC 31.6 g/dL (28.0-37.0); MCV 75.6 fL (80.0-100.0); MPV 7.3 fl. (7.2-11.1); RBC 4.94 mil/uL (4.20-5.00); RDW-CV 20.4 % (10.5-14.5); WBC 16.1 thou/uL (4.0-11.0)
[2021-07-24 17:30] VITALS: BP 157/100
[2021-07-24 20:24] VITALS: BP 160/88
[2021-07-25] VITALS (7 sets, daily range): BP systolic 127–175; BP diastolic 76–103
[2021-07-25 07:08] LABS: GLYCOHEMOGLOBIN (HGB A1C) 6.6 % (4.8-5.6)
[2021-07-25 16:58] LABS: CALCIUM 8.5 mg/dL (8.5-10.1); CREATININE 1.2 mg/dL (0.6-1.3); POTASSIUM 3.3 mmol/L (3.5-5.1)
[2021-07-26 01:14] VITALS: BP 111/76
[2021-07-26 05:20] VITALS: BP 120/65
[2021-07-26 08:18] VITALS: BP 169/95
[2021-07-26 12:00] VITALS: BP 125/79
[2021-07-26 16:00] VITALS: BP 133/83
[2021-07-26 19:50] VITALS: BP 136/81
[2021-07-27] VITALS: BP 117/83
[2021-07-27 03:53] LABS: HEMATOCRIT 35.6 % (37.0-47.0); HEMOGLOBIN 11.3 gm/dL (12.0-15.0); MCH 24.2 pg (26.0-34.0); MCHC 31.7 g/dL (28.0-37.0); MCV 76.3 fL (80.0-100.0); RBC 4.66 mil/uL (4.20-5.00); RDW-CV 20.6 % (10.5-14.5); WBC 10.6 thou/uL (4.0-11.0)
[2021-07-27 04:00] VITALS: BP 121/86
[2021-07-27 04:45] LABS: CALCIUM 8.7 mg/dL (8.5-10.1); CREATININE 1.1 mg/dL (0.6-1.3)
[2021-07-27 08:00] VITALS: BP 134/78
[2021-07-27] MEDS ORDERED: NORVASC5 MG PO (08:06)
[2021-07-27] MEDS ORDERED: METFORMIN HCL500 MG PO (08:10)
[2021-07-27 09:02] VITALS: BP 121/86
== END 2021-07-27 13:45 | disposition home health service (06) | DRG 291 ==
LOC: M.ERS 15:42 → M.TBA-ER 17:18 → M.2W 07-25 08:13
PROVIDERS: Internal Medicine; Student in an Organized Health Care Education/Training Program; ADMIT Internal Medicine; ATTEND Internal Medicine
PROC: 05HB33Z Insertion of Infusion Device into Right Basilic Vein, Percutaneous Approach (ICD-10-PCS; principal; 2021-07-25)
PROC: 5A0935A Assistance with Respiratory Ventilation, Less than 24 Consecutive Hours, High Flow/Velocity Cannula (ICD-10-PCS; 2021-07-26)
PROC: 5A0935A Assistance with Respiratory Ventilation, Less than 24 Consecutive Hours, High Flow/Velocity Cannula (ICD-10-PCS; 2021-07-27)
DX: I11.0 Hypertensive heart disease with heart failure (principal); I50.33 Acute on chronic diastolic (congestive) heart failure; J96.01 Acute respiratory failure with hypoxia; J98.11 Atelectasis; L03.116 Cellulitis of left lower limb; L03.115 Cellulitis of right lower limb; G47.00 Insomnia, unspecified; Z96.652 Presence of left artificial knee joint; E66.01 Morbid (severe) obesity due to excess calories; I87.8 Other specified disorders of veins; E87.6 Hypokalemia; D72.829 Elevated white blood cell count, unspecified; F41.9 Anxiety disorder, unspecified; I48.0 Paroxysmal atrial fibrillation; E11.9 Type 2 diabetes mellitus without complications; E88.09 Other disorders of plasma-protein metabolism, not elsewhere classified; Z20.822 Contact with and (suspected) exposure to COVID-19; Z68.37 Body mass index [BMI] 37.0-37.9, adult; Z88.8 Allergy status to other drugs, medicaments and biological substances; Z87.891 Personal history of nicotine dependence

== ENCOUNTER 2021-08-30 18:23 | Inpatient (IN) | payer MEDICARE, OTHER ==
[~2021-08-30] VITALS: Ht 266.7 cm; Wt 134.4 kg
[~2021-08-30 18:23] MED LIST changes: -DESYREL150 MG PO; +METFORMIN HCL500 MG PO; +TRAZODONE HCL50 MG PO
[2021-08-30 18:36] VITALS: BP 193/93
[2021-08-30 19:26] LABS: ABSOLUTE BASOPHILS 0.1 thou/uL (0.0-0.2); ABSOLUTE EOSINOPHILS 0.2 thou/uL (0.0-0.7); ABSOLUTE MONOCYTES 0.5 thou/uL (0.0-1.2); ABSOLUTE NEUTROPHILS 7.9 thou/uL (1.6-8.1); BASOPHILS 1.1 %; EOSINOPHILS 1.5 %; HEMATOCRIT 37.1 % (37.0-47.0); HEMOGLOBIN 11.6 gm/dL (12.0-15.0); LYMPHOCYTES 18.5 %; MCHC 31.3 g/dL (28.0-37.0); MCV 76.8 fL (80.0-100.0); MONOCYTES 4.8 %; MPV 6.9 fl. (7.2-11.1); NUCLEATED RBCS 0 /100WBC; PLATELET COUNT* 462 thou/uL (150-400); POLYS 74.1 %; RBC 4.82 mil/uL (4.20-5.00); RDW-CV 20.4 % (10.5-14.5); WBC 10.6 thou/uL (4.0-11.0)
[2021-08-30 19:37] LABS: CALCIUM 9.1 mg/dL (8.5-10.1); CREATININE 1.3 mg/dL (0.6-1.3); POTASSIUM 4.5 mmol/L (3.5-5.1)
[2021-08-30 19:52] LABS: ALBUMIN 3.3 g/dL (3.4-5.0); TOTAL BILIRUBIN 0.3 mg/dL (<0.1-1.0); TOTAL PROTEIN 8.4 g/dL (6.4-8.2)
[2021-08-30 20:08] LABS: PLATELET ESTIMATE INCREASED
[2021-08-30 23:10] VITALS: BP 180/68
[2021-08-31] VITALS: BP 150/90
[2021-08-31 08:05] VITALS: BP 154/94
[2021-08-31 12:00] VITALS: BP 134/76
[2021-08-31 15:40] LABS: ANION GAP 12 mmol/L (7-16); BUN 17 mg/dL (7-18); CALCIUM 9.3 mg/dL (8.5-10.1); CHLORIDE 99 mmol/L (98-107); CHOLESTEROL 153 mg/dL (<200); CO2 27 mmol/L (21-32); CREATININE 1.2 mg/dL (0.6-1.3); GLUCOSE 114 mg/dL (70-99); HDL CHOLESTEROL 40 mg/dL (>40); LDL CHOLESTEROL 73 mg/dL (<100); MAGNESIUM 2.1 mg/dL (1.8-2.4); POTASSIUM 4.1 mmol/L (3.5-5.1); SODIUM 138 mmol/L (136-145); TC:HDL 3.8 Ratio (Not establshd); TRIGLYCERIDE 204 mg/dL (<150); VLDL 41 mg/dL (<40)
[2021-08-31 15:50] LABS: SERUM ASSESSMENT Clear
[2021-08-31 16:00] VITALS: BP 124/74
[2021-08-31 20:00] VITALS: BP 137/97
[2021-09-01] VITALS (7 sets, daily range): BP systolic 89–118; BP diastolic 50–73
[2021-09-02 03:06] LABS: GLYCOHEMOGLOBIN (HGB A1C) 6.6 % (4.8-5.6)
[2021-09-02 04:00] VITALS: BP 125/54
[2021-09-02 07:15] VITALS: BP 113/68
[2021-09-02] MEDS ORDERED: KEFLEX250 MG PO (08:48)
[2021-09-02 09:23] LABS: CALCIUM 8.6 mg/dL (8.5-10.1); CREATININE 1.2 mg/dL (0.6-1.3); POTASSIUM 4.4 mmol/L (3.5-5.1)
[2021-09-02 10:44] LABS: ABSOLUTE BASOPHILS 0.1 thou/uL (0.0-0.2); ABSOLUTE EOSINOPHILS 0.3 thou/uL (0.0-0.7); ABSOLUTE LYMPHOCYTES 2.5 thou/uL (0.8-5.3); ABSOLUTE MONOCYTES 0.5 thou/uL (0.0-1.2); ABSOLUTE NEUTROPHILS 5.5 thou/uL (1.6-8.1); BASOPHILS 1.2 %; EOSINOPHILS 3.7 %; HEMATOCRIT 35.8 % (37.0-47.0); HEMOGLOBIN 11.1 gm/dL (12.0-15.0); LYMPHOCYTES 27.9 %; MCH 23.8 pg (26.0-34.0); MCHC 30.9 g/dL (28.0-37.0); MONOCYTES 6.1 %; MPV 7.2 fl. (7.2-11.1); NUCLEATED RBCS 0 /100WBC; PLATELET COUNT* 415 thou/uL (150-400); POLYS 61.1 %; RBC 4.65 mil/uL (4.20-5.00); RDW-CV 20.8 % (10.5-14.5)
[2021-09-02 11:30] VITALS: BP 99/63
[2021-09-02 11:52] LABS: HYPOCHROMASIA 2+; MICROCYTES 1+; PLATELET ESTIMATE INCREASED
[2021-09-02 11:53] LABS: ANISOCYTOSIS 1+
[2021-09-02 15:47] VITALS: BP 100/58
== END 2021-09-03 | disposition home health service (06) | DRG 603 ==
LOC: M.ERS 18:23 → M.2W 21:07 → M.TBA-ER 21:07 → M.2W 23:58
PROVIDERS: Student in an Organized Health Care Education/Training Program; ADMIT Internal Medicine; ATTEND Internal Medicine
DX: L03.116 Cellulitis of left lower limb (principal); Z68.1 Body mass index [BMI] 19.9 or less, adult; Z20.822 Contact with and (suspected) exposure to COVID-19; Z88.8 Allergy status to other drugs, medicaments and biological substances; I48.0 Paroxysmal atrial fibrillation; Z79.01 Long term (current) use of anticoagulants; I11.0 Hypertensive heart disease with heart failure; I50.9 Heart failure, unspecified; G47.00 Insomnia, unspecified; R73.03 Prediabetes; M79.7 Fibromyalgia; B37.9 Candidiasis, unspecified; E66.01 Morbid (severe) obesity due to excess calories; L03.115 Cellulitis of right lower limb